=== PATIENT | male | born 1940 | race Caucasian/White ===

== ENCOUNTER 2020-01-18 13:33 | Emergency (ER) | payer MEDICARE, BC ==
[~2020-01-18] VITALS: Ht 188 cm; Wt 83.9 kg
[2020-01-18] MEDS ORDERED: SODIUM CHLORIDE 0.9% 500ML 500 ML IV STA (14:13)
[2020-01-18] MEDS ORDERED: SODIUM CHLORIDE FLUSH 10 ML SYR INJ PRN (14:15)
--- NOTE | 2020-01-18 14:42 | Diagnostic Imaging Report ---
EXAMINATION: CXR 1 VEW - HOPD INDICATION: Decreased appetite. Diarrhea. Fatigue ^fatigue COMPARISON: None FINDINGS: TUBES and LINES: Sternal wires. LUNGS: Lungs are well inflated. Mild chronic appearing change in the lungs. No focal lung consolidation. PLEURA: No pleural effusion or pneumothorax. HEART AND MEDIASTINUM: The cardiomediastinal silhouette is unremarkable. BONES AND SOFT TISSUES: No acute osseous lesion. Soft tissues are unremarkable. UPPER ABDOMEN: No free air under the diaphragm. IMPRESSION: Mild chronic appearing change in the lungs. No focal lung consolidation. Signed by: Dr. Sidney Calabrese M.D. on 01/18/2020 2:39 PM
--- OUTSIDE RECORDS SUMMARY | 2020-01-18 14:58 | XMS REPORT | Continuity of Care Document ---
Author Author [facility] t Organization [facility] Address [address] [place] [address] Phone Unavailable Care Team Providers Care Convex Grinder Name Role Phone Fernando WELCH, Jesse PCP Eva MCCOY Attphys Unavailable Payers Payer Name Policy Type Policy Number Effective Date Expiration Date S ource Problems This patient has no known problems. Allergies, Adverse Reactions, Alerts Allergy Name Allergy Type Status Severity Reaction(s) Onset Date Inacti ve Date Treating Clinician Comments Source No Known Allergies DA Active U 2020-01-16 00:00:00 [facility] No Known Allergies DA Active U 2019-12-26 00:00:00 [facility] No Known Allergies DA Active U 2019-12-10 00:00:00 [facility] No Known Allergies DA Active U 2017-08-13 00:00:00 [facility] Social History Social Habit Start Date Stop Date Quantity Comments Source Sex Assigned At Madhav Harding Medications This patient has no known medications. Procedures This patient has no known procedures. Plan of Care Planned Activity Planned Date Details Comments Source Future Scheduled Test 2020-02-15 00:00:00 INFLUENZA VACCINE [code = INFLUENZA VACCINE] [facility] Future Scheduled Test 2004 00:00:00 65+ PNEUMOCOCCAL V ACCINE (1 of 2 - PCV13) [code = 65+ PNEUMOCOCCAL VACCINE (1 of 2 - PCV13)] [facility] Future Scheduled Test 1989 00:00:00 SHINGLES VACCINES (#1) [code = SHINGLES VACCINES (#1)] [facility] Results Test Description Test Time Test Comments Results Result Comments Source [facility] 2020-01-18 14:38:00 [facility] [address] [place] [address] Patient Name: EILEEN CHACON MR #: [id number] : 1940 Age/Sex: 79/M Req #: [id number] Adm Physician: Ordered by: OG MCCOY Report #: [id number] Location: [facility] Room/Bed: Procedure: [id number] [facility] Exam Date: 01/18/20 Exam Time: 1437 REPORT STATUS: Signed EXAMINATION: CXR 1 [facility] INDICATION: Decreased appetite. Diarrhea. Fatigue fatigue COMPARISON: None FINDINGS: TUBES and LINES: Sternal wires. LUNGS: Lungs are well inflated. Mild chronic appearing change in the lungs. No focal lung consolidation. PLEURA: No pleural effusion or pneumothorax. HEART AND MEDIASTINUM: The cardiomediastinal silhouette is unremarkable. BONES AND SOFT TISSUES: No acute osseous lesion. Soft tissues are unremarkable. UPPER ABDOMEN: No free air under the diaphragm. IMPRESSION: Mild chronic appearing change in the lungs. No focal lung consolidation. Signed by: Dr. Guanaco Calabrese M.D. on 01/18/2020 2:39 PM Dictated By: GUANACO CALABRESE MD, MD 38 Transcribed By: RAMIRO on 01/18/201438 COPY TO: OG MCCOY BASIC METABOLIC PANEL 2020-01-16 15:10:00 Test Item SODIUM (test code = NA) 135 mEq/L 134-147 N POTASSIUM (test code = K) 4.3 mEq/L 3.4-5.0 N CHLORIDE (test code = CL) 104 mEq/L 100-108 N CARBON DIOXIDE (test code = CO2) 24 mEq/L 21-33 N ANION GAP (test code = GAP) 12 0-20 N GLUCOSE (test code = GLU) 110 mg/dL 70-110 N BLOOD UREA NITROGEN (test code = BUN) 34 mg/dL 7-18 H GLOMERULAR FILTRATION RATE (test code = GFR) 45.0 70-80 L Units of measure = ml/min/1.73 m2 CREATININE (test code = CREAT) 1.5 mg/dL 0.6-1.3 H CALCIUM (test code = CA) 10.1 mg/dL 8.0-10.5 N - XR CHEST 2 [id number] 14:38:00 FAX: Sarah Mariscal MD [phone] [place]: St: PRE FAX: Jesse Albright MD [phone] Name: EILEEN CHACON [facility] : 1940 Age/S: 79/M [address] [place] [address] Blvd Unit #: [id number] Loc: [place] [address] Phys: Sarah Gillespie MD Acct: [id number] Dis Date: Status: PRE [facility] PHONE #: [phone] Exam Date: 01/16/2020 1417 FAX #: [phone] Reason: PREOP EXAMS: CPT CODE: [id number] XR CHEST 2 V 58268 CLINICAL HISTORY: PREOP COMPARISON: December 26, 2019 PA and lateral termination of chest is available in 3 images. Sternotomy sutures are present. Heart size is normal. Lung boogie are clear. There is no evidence of pneumonia or congestive failure. Regional skeletal structures demonstrate no acute abnormality. IMPRESSION: No evidence of pneumonia or congestive failure is seen. at 1438 Reported and signed by: Moise Purcell M.D. CC: Sarah Gillespie MD; Jesse King MD Technologist: RT Prabhu(R)(M) Trnscrd Date/Time/By: 01/16/2020 (8769) : By: Jay Orig Print D/T: S: 01/16/2020 (1823) PAGE 1 Signed Report PROTHROMBIN [id number] 14:28:00* Test Item Value Reference Range Interpretation Comments PROTHROMBIN TIME PATIENT (test code = PTP) 13.9 SECONDS 9.3-12.9 H INTERNATIONAL NORMAL RATIO (test code = INR) 1.3 0.8-1.2 H TARGET INR BY INDICATION Indication INR1. Prophylaxis of venous thrombosis 2.0 - 3.0 (orthopedic surgery), Prophylaxis of venous thrombosis (other than high-risk surgery), Treatment of Deep Vein Thrombosis/Pulmonary Embolism, Prevention of systemic embolism - Tissue heart valves, Acute Myocardial Infarction (to prevent systemic embolism), Valvular heart disease, Atrial Fibrillation, Bileaflet mechanical valve in aortic position.2. Mechanical prosthetic valves (high risk), 2.5 - 3.5 Presence of Lupus Anticoagulant or Antiphospholipid Antibodies, Prevention of systemic embolism - Acute Myocardial Infarction (to prevent recurrent infarct). CBC W/AUTO [id number] 14:22:00* Test Item Value Reference Range Interpretation Comments WHITE BLOOD CELL (test code = WBC) 6.93 x10 3/uL 4.5-11.0 N RED BLOOD CELL (test code = RBC) 4.11 x10 6/uL 4.00-5.60 N HEMOGLOBIN (test code = HGB) 12.4 g/dL 12.5-16.9 L HEMATOCRIT (test code = HCT) 39.0 % 37.5-50.7 N MEAN CELL VOLUME (test code = MCV) 94.9 fL 81.0-99.0 N MEAN CELL HGB (test code = MCH) 30.2 pg 27.0-33.0 N MEAN CELL HGB CONCETRATION (test code = MCHC) 31.8 g/dL 33.0-37. 0 L RED CELL DISTRIBUTION WIDTH CV (test code = RDW) 14.9 % 11.5- 14.5 H RED CELL DISTRIBUTION WIDTH SD (test code = RDW-SD) 52.2 fL 37 .0-54.0 N PLATELET COUNT (test code = PLT) 295 x10 3/uL 150-400 N MEAN PLATELET VOLUME (test code = MPV) 9.1 fL 7.0-9.0 H NEUTROPHIL % (test code = NT%) 71.6 % 56.0-77.0 N IMMATURE GRANULOCYTE % (test code = IG%) 0.4 % 0.0-2.0 N LYMPHOCYTE % (test code = LY%) 20.2 % 14.0-32.0 N MONOCYTE % (test code = MO%) 6.6 % 4.8-9.0 N EOSINOPHIL % (test code = EO%) 0.9 % 0.3-3.7 N BASOPHIL % (test code = BA%) 0.3 % 0.0-2.0 N NUCLEATED RBC % (test code = NRBC%) 0.0 % 0-0 N NEUTROPHIL # (test code = NT#) 4.96 x10 3/uL 2.0-7.6 N IMMATURE GRANULOCYTE # (test code = IG#) 0.03 x10 3/uL 0.00-0.03 N LYMPHOCYTE # (test code = LY#) 1.40 x10 3/uL 1.0-3.8 N MONOCYTE # (test code = MO#) 0.46 x10 3/uL 0.1-0.8 N EOSINOPHIL # (test code = EO#) 0.06 x10 3/uL 0.0-0.2 N BASOPHIL # (test code = BA#) 0.02 x10 3/uL 0.0-0.2 N NUCLEATED RBC # (test code = NRBC#) 0.00 x10 3/uL 0.0-0.1 N MANUAL DIFF REQUIRED (test code = MDIFF) NO BASIC METABOLIC [id number] 16:33:00* Test Item Value Reference Range Interpretation Comments SODIUM (test code = NA) 137 mEq/L 134-147 N POTASSIUM (test code = K) 4.1 mEq/L 3.4-5.0 N CHLORIDE (test code = CL) 100 mEq/L 100-108 N CARBON DIOXIDE (test code = CO2) 25 mEq/L 21-33 N ANION GAP (test code = GAP) 17 0-20 N GLUCOSE (test code = GLU) 128 mg/dL 70-110 H BLOOD UREA NITROGEN (test code = BUN) 30 mg/dL 7-18 H GLOMERULAR FILTRATION RATE (test code = GFR) 45.0 70-80 L Units of measure = ml/min/1.73 m2 CREATININE (test code = CREAT) 1.5 mg/dL 0.6-1.3 H CALCIUM (test code = CA) 9.6 mg/dL 8.0-10.5 N B-TYPE NATRIURETIC [id number] 15:55:00* Test Item Value Reference Range Interpretation Comments B-TYPE NATRIURETIC PEPTIDE (test code = BNP) 653.0 PG/ML 0-100 H CBC W/AUTO [id number] 12:30:00* Test Item Value Reference Range Interpretation Comments WHITE BLOOD CELL (test code = WBC) 10.48 x10 3/uL 4.5-11.0 N RED BLOOD CELL (test code = RBC) 4.55 x10 6/uL 4.00-5.60 N HEMOGLOBIN (test code = HGB) 14.0 g/dL 12.5-16.9 N HEMATOCRIT (test code = HCT) 42.8 % 37.5-50.7 N MEAN CELL VOLUME (test code = MCV) 94.1 fL 81.0-99.0 N MEAN CELL HGB (test code = MCH) 30.8 pg 27.0-33.0 N MEAN CELL HGB CONCETRATION (test code = MCHC) 32.7 g/dL 33.0-37. 0 L RED CELL DISTRIBUTION WIDTH CV (test code = RDW) 14.5 % 11.5- 14.5 N RED CELL DISTRIBUTION WIDTH SD (test code = RDW-SD) 50.6 fL 37 .0-54.0 N PLATELET COUNT (test code = PLT) 258 x10 3/uL 150-400 N MEAN PLATELET VOLUME (test code = MPV) 9.7 fL 7.0-9.0 H NEUTROPHIL % (test code = NT%) 74.0 % 56.0-77.0 N IMMATURE GRANULOCYTE % (test code = IG%) 0.4 % 0.0-2.0 N LYMPHOCYTE % (test code = LY%) 17.8 % 14.0-32.0 N MONOCYTE % (test code = MO%) 6.7 % 4.8-9.0 N EOSINOPHIL % (test code = EO%) 0.7 % 0.3-3.7 N BASOPHIL % (test code = BA%) 0.4 % 0.0-2.0 N NUCLEATED RBC % (test code = NRBC%) 0.0 % 0-0 N NEUTROPHIL # (test code = NT#) 7.76 x10 3/uL 2.0-7.6 H IMMATURE GRANULOCYTE # (test code = IG#) 0.04 x10 3/uL 0.00-0.03 H LYMPHOCYTE # (test code = LY#) 1.87 x10 3/uL 1.0-3.8 N MONOCYTE # (test code = MO#) 0.70 x10 3/uL 0.1-0.8 N EOSINOPHIL # (test code = EO#) 0.07 x10 3/uL 0.0-0.2 N BASOPHIL # (test code = BA#) 0.04 x10 3/uL 0.0-0.2 N NUCLEATED RBC # (test code = NRBC#) 0.00 x10 3/uL 0.0-0.1 N MANUAL DIFF REQUIRED (test code = MDIFF) NO [id number] 06:38:00* Test Item Value Reference Range Interpretation Comments TROPONIN-I (test code = TROPI) 0.012 ng/mL 0.000-0.045 N Negative: <= 0.045 Positive: >= 0.046 Correlation with serial results, other cardiac markers andclinical findings is necessary to determine the clinicalsignificance of this result. Results using different methodologies should not be comparedto one another as quantitative results may vary by method. [id number] 03:10:00* Test Item Value Reference Range Interpretation Comments TROPONIN-I (test code = TROPI) 0.012 ng/mL 0.000-0.045 N Negative: <= 0.045 Positive: >= 0.046 Correlation with serial results, other cardiac markers andclinical findings is necessary to determine the clinicalsignificance of this result. Results using different methodologies should not be comparedto one another as quantitative results may vary by method. - DUP VEIN UNI/[id number] 01:01:00 Name: EILEEN CHACON [facility] [place] : 1940 Age/S: 79 / M [address] [place] [address] Unit #: [id number] Loc: [place] [address] Phys: Philippe Gonzalez DO Acct: [id number] Dis Date: Status: REG ER PHONE #: [phone] Exam Date: 12/27/201928 FAX #: [phone] Reason: RLE swelling EXAMS: CPT CODE: [id number] DUP VEIN UNI/LTD 12458 EXAM: US, DUP VEIN UNI/LTD: 12/27/2019, 0003 hours Clinical Indication: Right lower extremity swelling. Status post cardiac scans on 12/12/2019. Evaluate for DVT. Shortness of breath. Comparison: None. TECHNIQUE: Sonographic evaluation of the right lower extremity veins was performed using high resolution B-mode imaging, along with pulse and color Doppler imaging. FINDINGS: Right lower extremity: The common femoral vein, superficial femoral vein, popliteal vein and visualized posterior tibial/calf veins are patent. There is no echogenic debris to suggest deep venous thrombosis. The saphenofemoral junction is unremarkable. IMPRESSION: 1. No deep venous thrombosis of right lower extremity. REFERENCE: Deep veins include: common femoral vein, superficial femoral vein (also can be referred to as "femoral vein"), popliteal vein, posterior tibial vein Superficial veins include: greater and lesser saphenous veins SL: JSYED-H Electronica lly Signed by Bulmaro Klein on 12/27/2019 at 0101 Repo rted and signed by: Ritchie Klein M.D. PAGE 1 Sign ed Report (CONTINUED) Name: EILEEN CHACON : 1940 Age/S: 79 / M [address] [place] [address] Unit #: [id number] Loc: [place] [address] Phys: GonzalezPhilippe DO Acct: [id number] Dis Date: Status: REG ER PHONE #: [phone] Exam Date: 12/27/2019 0029 FAX #: [phone] Reason: RLE swelling EXAMS: CPT CODE: [id number] DUP VEIN UNI/LTD 23565 <Continued> CC: Philippe Gonzalez DO Technologist: Laura Saucedo RDMS(AB)(OB) Trnscb Date/Time: 12/27/2019 (100) [id number] Orig Print D/T: S: 12/27/2019 (010) Probe: PAGE 2 Signed Report - CT CHEST W/O [id number] 00:47:00 Name: EILEEN CHACON [facility] : 1940 Age/S: 79 / M [address] [place], [place] [address]vd Unit #: [id number] Loc: [place] [address] Phys: Philippe Gonzalez Acct: [id number] Dis Date: Status: REG ER PHONE #: [phone] Exam Date: 12/27/2019 002 FAX #: [phone] Reason: lung opacity EXAMS: CPT CODE: [id number] CT CHEST W/O CONTRAST 37010 CT CHEST WITHOUT CONTRAST DATED 12/27/2019. INDICATION: Elevated blood pressure. Shortness of breath. Left lung opacity on chest x-ray. COMPARISON: Chest radiograph dated 12/26/2019. TECHNIQUE: A CT of the chest was performed using helical imaging from the thoracic inlet through the thoracic outlet during with subsequent sagittal and coronal reconstruction. . IV Contrast: None. CT imaging performed at this location utilizes radiation dose optimization techniques which include one or more of the followin) Automated exposure control; 2) Adjustment of mA and/or kV; 3) Use of iterative reconstructive technique. CT radiation dose DLP (mGy-cm): 413. FINDINGS: MEDIASTINUM: The CT images of the mediastinum demonstrate no evidence of a mediastinal mass or enlarged mediastinal lymph nodes. A small hiatal hernia is noted in the lower mediastinum. The thoracic aorta is normal in caliber. Assessment for aortic dissection is limited by the absence of intravenous contrast. Atherosclerotic calcification is identified in the aorta, proximal great vessels and coronary arteries. 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 PLE URAL SPACE: No acute pleural space abnormalities are detected. MAGALY NGS: The lungs appear clear of acute disease. No pulmonary masses are not ed. Scarring is identified in the left upper lobe with pleural tenting. UPPER ABDOMEN: The included upper abdominal organs appear unr emarkable. ADDITIONAL FINDINGS: Old healed fractures of the compounder flavorings olateral left 7th, 8th and 9th ribs IMPRESSION: [address] abnormalities of the lungs, mediastinum or pleural spaces are detected. PAGE 1 Signed Report (CONTINUED) Name: EILEEN CHACON [facility] : 1940 Age/S: 79 / M [address] [place] [address] Unit #: [id number] Loc: [place] [address] [facility] s: Philippe Gonzalez DO Acct: [id number] Dis Date: Status: REG ER PHONE #: [phone] Exam Date: 12/27/201926 FAX #: [phone] Reason: lung opacity EXAMS: CPT CODE: [id number] CT CHEST W/O CONTRAST 68170 <Continued> SL: 131 at 0047 Reported and signed by: David Thomas M.D. CC: Philippe Gonzalez DO Technologist:RT Kofi(R) CTDI: DLP: Trnscb Date/Time: 12/27/2019 (0047) Mook Orig Print D/T: S: 12/27/2019 (005) PAGE 2 Signed Report - XR CHEST 1 [id number] 22:45:00 FAX: Philippe Gonzalez DO [phone] [place]: St: REG Name: Britton BOSTONMATTYN FRED [facility] : [birth year] Age/S: 79/M [address] [place] [address] Blvd Unit #: [id number] Loc: G.ERS2 [place] [address] Phys: Philippe Gonzalez DO Acct: [id number] Dis Date: Status: REG ER PHONE #: [phone] Exam Date: 12/26/20192232 FAX #: [phone] Reason: malaise EXAMS: CPT CODE: [id number] XR CHEST 1 V 87611 Chest, single view dated 12/26/2019. HISTORY: Malaise. Elevated blood pressure. Shortness of breath. Comparison is made to a prior study dated 12/10/2019. The patient is status post median sternotomy. The heart is normal in s ize. The cardiomediastinal shadow is stable. A vague region of increased opacity is identified in the periphery of the left midlung. Linear paren chymal scarring is identified in the left upper lobe. The right lung appe ars clear. The pulmonary vasculature is normal in caliber. No acute pleu ral space abnormalities are detected. 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 IMPRESSION: 1. The vague ar ea of increased opacity in the periphery of the left midlung may be pleu ral in origin and related to the old left rib fractures. Since this opa city is not clearly demonstrated on the preceding study, it would be dif ficult to exclude early infiltrate. There is no additional radiographic evidence of acute cardiopulmonary disease. SL: 131 at 2245 Reported and signed by: David Thomas M.D. CC: Philippe Gonzalez DO Technologist: RT Jazmyne(Jamil) Trnscrd Date/Time/By: 12/26/2019 (2) : By: Mook Gonzalez Print D/T: S: 12/26/2019 (8861) PAGE 1 Signed Report B-TYPE NATRIURETIC [id number] 22:22:00* Test Item Value Reference Range Interpretation Comments B-TYPE NATRIURETIC PEPTIDE (test code = BNP) 1223.0 PG/ML 0-100 H BASIC METABOLIC [id number] 22:19:00* Test Item Value Reference Range Interpretation Comments SODIUM (test code = NA) 138 mEq/L 134-147 N POTASSIUM (test code = K) 4.0 mEq/L 3.4-5.0 N CHLORIDE (test code = CL) 102 mEq/L 100-108 N CARBON DIOXIDE (test code = CO2) 24 mEq/L 21-33 N ANION GAP (test code = GAP) 16 0-20 N GLUCOSE (test code = GLU) 147 mg/dL 70-110 H BLOOD UREA NITROGEN (test code = BUN) 30 mg/dL 7-18 H GLOMERULAR FILTRATION RATE (test code = GFR) 48.8 70-80 L Units of measure = ml/min/1.73 m2 CREATININE (test code = CREAT) 1.4 mg/dL 0.6-1.3 H CALCIUM (test code = CA) 9.9 mg/dL 8.0-10.5 N HEPATIC FUNCTION [id number] 22:19:00* Test Item Value Reference Range Interpretation Comments TOTAL PROTEIN (test code = PROT) 7.0 g/dL 6.4-8.2 N ALBUMIN (test code = ALB) 4.30 g/dL 3.4-5.0 N BILIRUBIN TOTAL (test code = BILT) 0.60 mg/dL 0.0-1.0 N BILIRUBIN DIRECT (test code = BILD) 0.20 MG/DL 0.0-0.30 BILIRUBIN INDIRECT (test code = BILIND) 0.40 MG/DL SGOT/AST (test code = AST) 12 IUnit/L 15-37 L SGPT/ALT (test code = ALT) 10 IUnit/L 30-65 L ALKALINE PHOSPHATASE TOTAL (test code = ALKP) 53 IUnit/L 20-125 N [id number] 22:19:00* Test Item Value Reference Range Interpretation Comments MAGNESIUM (test code = MAG) 2.11 mg/dL 1.8-2.4 N [id number] 22:19:00* Test Item Value Reference Range Interpretation Comments TROPONIN-I (test code = TROPI) 0.011 ng/mL 0.000-0.045 N Negative: <= 0.045 Positive: >= 0.046 Correlation with serial results, other cardiac markers andclinical findings is necessary to determine the clinicalsignificance of this result. Results using different methodologies should not be comparedto one another as quantitative results may vary by method. THROMBOPLASTIN TIME [id number] 22:15:00* Test Item Value Reference Range Interpretation Comments THROMBOPLASTIN TIME PARTIAL (test code = PTT) 54.2 Seconds 25.0-39. 5 H Therapeutic Range: 50.4 - 88.3 Seconds Effective 08/30/2018 CBC W/AUTO [id number] 22:04:00* Test Item Value Reference Range Interpretation Comments WHITE BLOOD CELL (test code = WBC) 11.40 x10 3/uL 4.5-11.0 H RED BLOOD CELL (test code = RBC) 4.19 x10 6/uL 4.00-5.60 N HEMOGLOBIN (test code = HGB) 13.0 g/dL 12.5-16.9 N HEMATOCRIT (test code = HCT) 39.6 % 37.5-50.7 N MEAN CELL VOLUME (test code = MCV) 94.5 fL 81.0-99.0 N MEAN CELL HGB (test code = MCH) 31.0 pg 27.0-33.0 N MEAN CELL HGB CONCETRATION (test code = MCHC) 32.8 g/dL 33.0-37. 0 L RED CELL DISTRIBUTION WIDTH CV (test code = RDW) 14.4 % 11.5- 14.5 N RED CELL DISTRIBUTION WIDTH SD (test code = RDW-SD) 50.1 fL 37 .0-54.0 N PLATELET COUNT (test code = PLT) 247 x10 3/uL 150-400 N MEAN PLATELET VOLUME (test code = MPV) 10.0 fL 7.0-9.0 H NEUTROPHIL % (test code = NT%) 76.7 % 56.0-77.0 N IMMATURE GRANULOCYTE % (test code = IG%) 0.4 % 0.0-2.0 N LYMPHOCYTE % (test code = LY%) 15.6 % 14.0-32.0 N MONOCYTE % (test code = MO%) 6.6 % 4.8-9.0 N EOSINOPHIL % (test code = EO%) 0.4 % 0.3-3.7 N BASOPHIL % (test code = BA%) 0.3 % 0.0-2.0 N NUCLEATED RBC % (test code = NRBC%) 0.0 % 0-0 N NEUTROPHIL # (test code = NT#) 8.74 x10 3/uL 2.0-7.6 H IMMATURE GRANULOCYTE # (test code = IG#) 0.05 x10 3/uL 0.00-0.03 H LYMPHOCYTE # (test code = LY#) 1.78 x10 3/uL 1.0-3.8 N MONOCYTE # (test code = MO#) 0.75 x10 3/uL 0.1-0.8 N EOSINOPHIL # (test code = EO#) 0.05 x10 3/uL 0.0-0.2 N BASOPHIL # (test code = BA#) 0.03 x10 3/uL 0.0-0.2 N NUCLEATED RBC # (test code = NRBC#) 0.00 x10 3/uL 0.0-0.1 N MANUAL DIFF REQUIRED (test code = MDIFF) NO BASIC METABOLIC [id number] 04:48:00* Test Item Value Reference Range Interpretation Comments SODIUM (test code = NA) 138 mEq/L 134-147 N POTASSIUM (test code = K) 4.0 mEq/L 3.4-5.0 N CHLORIDE (test code = CL) 109 mEq/L 100-108 H CARBON DIOXIDE (test code = CO2) 21 mEq/L 21-33 N ANION GAP (test code = GAP) 12 0-20 N GLUCOSE (test code = GLU) 122 mg/dL 70-110 H BLOOD UREA NITROGEN (test code = BUN) 27 mg/dL 7-18 H GLOMERULAR FILTRATION RATE (test code = GFR) 64.4 70-80 L Units of measure = ml/min/1.73 m2 CREATININE (test code = CREAT) 1.1 mg/dL 0.6-1.3 N CALCIUM (test code = CA) 9.1 mg/dL 8.0-10.5 N CBC W/AUTO [id number] 04:17:00* Test Item Value Reference Range Interpretation Comments WHITE BLOOD CELL (test code = WBC) 8.24 x10 3/uL 4.5-11.0 N RED BLOOD CELL (test code = RBC) 4.17 x10 6/uL 4.00-5.60 N HEMOGLOBIN (test code = HGB) 12.8 g/dL 12.5-16.9 N HEMATOCRIT (test code = HCT) 41.2 % 37.5-50.7 N MEAN CELL VOLUME (test code = MCV) 98.8 fL 81.0-99.0 N MEAN CELL HGB (test code = MCH) 30.7 pg 27.0-33.0 N MEAN CELL HGB CONCETRATION (test code = MCHC) 31.1 g/dL 33.0-37. 0 L RED CELL DISTRIBUTION WIDTH CV (test code = RDW) 14.6 % 11.5- 14.5 H RED CELL DISTRIBUTION WIDTH SD (test code = RDW-SD) 53.1 fL 37 .0-54.0 N PLATELET COUNT (test code = PLT) 193 x10 3/uL 150-400 N MEAN PLATELET VOLUME (test code = MPV) 9.9 fL 7.0-9.0 H NEUTROPHIL % (test code = NT%) 67.0 % 56.0-77.0 N IMMATURE GRANULOCYTE % (test code = IG%) 0.6 % 0.0-2.0 N LYMPHOCYTE % (test code = LY%) 22.5 % 14.0-32.0 N MONOCYTE % (test code = MO%) 7.2 % 4.8-9.0 N EOSINOPHIL % (test code = EO%) 2.2 % 0.3-3.7 N BASOPHIL % (test code = BA%) 0.5 % 0.0-2.0 N NUCLEATED RBC % (test code = NRBC%) 0.0 % 0-0 N NEUTROPHIL # (test code = NT#) 5.53 x10 3/uL 2.0-7.6 N IMMATURE GRANULOCYTE # (test code = IG#) 0.05 x10 3/uL 0.00-0.03 H LYMPHOCYTE # (test code = LY#) 1.85 x10 3/uL 1.0-3.8 N MONOCYTE # (test code = MO#) 0.59 x10 3/uL 0.1-0.8 N EOSINOPHIL # (test code = EO#) 0.18 x10 3/uL 0.0-0.2 N BASOPHIL # (test code = BA#) 0.04 x10 3/uL 0.0-0.2 N NUCLEATED RBC # (test code = NRBC#) 0.00 x10 3/uL 0.0-0.1 N MANUAL DIFF REQUIRED (test code = MDIFF) NO BASIC METABOLIC [id number] 16:09:00* Test Item Value Reference Range Interpretation Comments SODIUM (test code = NA) 136 mEq/L 134-147 N POTASSIUM (test code = K) 4.0 mEq/L 3.4-5.0 N CHLORIDE (test code = CL) 108 mEq/L 100-108 N CARBON DIOXIDE (test code = CO2) 22 mEq/L 21-33 N ANION GAP (test code = GAP) 10 0-20 N GLUCOSE (test code = GLU) 126 mg/dL 70-110 H BLOOD UREA NITROGEN (test code = BUN) 27 mg/dL 7-18 H GLOMERULAR FILTRATION RATE (test code = GFR) 53.1 70-80 L Units of measure = ml/min/1.73 m2 CREATININE (test code = CREAT) 1.3 mg/dL 0.6-1.3 N CALCIUM (test code = CA) 9.0 mg/dL 8.0-10.5 N [id number] 16:09:00* Test Item Value Reference Range Interpretation Comments MAGNESIUM (test code = MAG) 2.50 mg/dL 1.8-2.4 H BASIC METABOLIC [id number] 16:08:00* Test Item Value Reference Range Interpretation Comments SODIUM (test code = NA) 136 mEq/L 134-147 N POTASSIUM (test code = K) 4.0 mEq/L 3.4-5.0 N CHLORIDE (test code = CL) 108 mEq/L 100-108 N CARBON DIOXIDE (test code = CO2) 22 mEq/L 21-33 N ANION GAP (test code = GAP) 10 0-20 N GLUCOSE (test code = GLU) 126 mg/dL 70-110 H BLOOD UREA NITROGEN (test code = BUN) 27 mg/dL 7-18 H GLOMERULAR FILTRATION RATE (test code = GFR) 70-80 CREATININE (test code = CREAT) mg/dL 0.6-1.3 CALCIUM (test code = CA) 9.0 mg/dL 8.0-10.5 N [id number] 16:08:00* Test Item Value Reference Range Interpretation Comments MAGNESIUM (test code = MAG) 2.50 mg/dL 1.8-2.4 H [id number] 12:17:00* Test Item Value Reference Range Interpretation Comments ACT-ISTAT (test code = ACTI) 296 SEC 74-137 H Performed by certified enrobing machine operator at [facility] [id number] 12:17:00* Test Item Value Reference Range Interpretation Comments ACT-ISTAT (test code = ACTI) 758 SEC 74-137 H Performed by certified enrobing machine operator at [facility] B-TYPE NATRIURETIC [id number] 07:35:00* Test Item Value Reference Range Interpretation Comments B-TYPE NATRIURETIC PEPTIDE (test code = BNP) 329.2 PG/ML 0-100 H BASIC METABOLIC [id number] 07:01:00* Test Item Value Reference Range Interpretation Comments SODIUM (test code = NA) 137 mEq/L 134-147 N POTASSIUM (test code = K) 3.8 mEq/L 3.4-5.0 N CHLORIDE (test code = CL) 107 mEq/L 100-108 N CARBON DIOXIDE (test code = CO2) 22 mEq/L 21-33 N ANION GAP (test code = GAP) 12 0-20 N GLUCOSE (test code = GLU) 121 mg/dL 70-110 H BLOOD UREA NITROGEN (test code = BUN) 31 mg/dL 7-18 H GLOMERULAR FILTRATION RATE (test code = GFR) 45.0 70-80 L Units of measure = ml/min/1.73 m2 CREATININE (test code = CREAT) 1.5 mg/dL 0.6-1.3 H CALCIUM (test code = CA) 9.1 mg/dL 8.0-10.5 N COMMENTS: To be done morning of Heart CathCBC W/AUTO [id number] 06:35:00* Test Item Value Reference Range Interpretation Comments WHITE BLOOD CELL (test code = WBC) 7.74 x10 3/uL 4.5-11.0 N RED BLOOD CELL (test code = RBC) 4.44 x10 6/uL 4.00-5.60 N HEMOGLOBIN (test code = HGB) 13.6 g/dL 12.5-16.9 N HEMATOCRIT (test code = HCT) 42.7 % 37.5-50.7 N MEAN CELL VOLUME (test code = MCV) 96.2 fL 81.0-99.0 MEAN CELL HGB (test code = MCH) 30.6 pg 27.0-33.0 N MEAN CELL HGB CONCETRATION (test code = MCHC) 31.9 g/dL 33.0-37. 0 L RED CELL DISTRIBUTION WIDTH CV (test code = RDW) 14.6 % 11.5- 14.5 H RED CELL DISTRIBUTION WIDTH SD (test code = RDW-SD) 51.6 fL 37 .0-54.0 N PLATELET COUNT (test code = PLT) 196 x10 3/uL 150-400 N MEAN PLATELET VOLUME (test code = MPV) 9.9 fL 7.0-9.0 H NEUTROPHIL % (test code = NT%) 63.2 % 56.0-77.0 N IMMATURE GRANULOCYTE % (test code = IG%) 0.6 % 0.0-2.0 N LYMPHOCYTE % (test code = LY%) 25.3 % 14.0-32.0 N MONOCYTE % (test code = MO%) 8.7 % 4.8-9.0 N EOSINOPHIL % (test code = EO%) 1.7 % 0.3-3.7 N BASOPHIL % (test code = BA%) 0.5 % 0.0-2.0 N NUCLEATED RBC % (test code = NRBC%) 0.0 % 0-0 N NEUTROPHIL # (test code = NT#) 4.89 x10 3/uL 2.0-7.6 N IMMATURE GRANULOCYTE # (test code = IG#) 0.05 x10 3/uL 0.00-0.03 H LYMPHOCYTE # (test code = LY#) 1.96 x10 3/uL 1.0-3.8 N MONOCYTE # (test code = MO#) 0.67 x10 3/uL 0.1-0.8 N EOSINOPHIL # (test code = EO#) 0.13 x10 3/uL 0.0-0.2 N BASOPHIL # (test code = BA#) 0.04 x10 3/uL 0.0-0.2 N NUCLEATED RBC # (test code = NRBC#) 0.00 x10 3/uL 0.0-0.1 N MANUAL DIFF REQUIRED (test code = MDIFF) NO COMMENTS: To be done morning of Heart CathCOVID 19 Asymptomatic IH [id number] 19:03:00* Test Item Value Reference Range Interpretation Comments COVID 19 Asymptomatic IH AG (test code = COVNONPUIAG) Negative Negative A negative result is presumptive and should be confirmedwith an FDA authorized molecular assay, if necessary forpatient management.A positive result does not rule out co-infections withother pathogens.This test detects both viable (live) and non-viable,SARS-CoV, and SARS-CoV-2. Test performance depends on theamount of virus (antigen) in the sample.This test has not been FDA cleared or approved; the test hasbeen authorized by FDA under an Emergency Use Authorization(EUA) for use by laboratories certified under the CLIA thatmeet the requirements to perform moderate, high or waivedcomplexity tests. LIPID PROFILE (CORONARY RISK)2019-12-11 13:23:00* Test Item Value Reference Range Interpretation Comments TRIGLYCERIDES (test code = TRIG) 233 mg/dL 40-150 H CHOLESTEROL (test code = CHOL) 138 mg/dL <200 CHOLESTEROL/HDL RATIO (test code = CHOLHDL) 4.60 RATIO 3.43-4.97 N RISK ASSOCIATED WITH CHOL/HDL RATIOS: RISK MALE FEMALE1/2 AVERAGE 3.43 3.27AVERAGE 4.97 4.442X AVERAGE 9.55 7.053X AVERAGE 23.39 11.04 NOTE THAT THE REFERENCE VALUE IS RELATEDTO RISK LEVELS RECOMMENDED BY THE NATL.HEART, LUNG, AND BLOOD INST. HDL CHOLESTEROL (test code = HDL) 30.0 mg/dL 32-72 L LIPOPROTEIN LDL (test code = LDL) 79 mg/dL 0-100 N <100 [id number] NEAR OPTIMAL/ABOVE [id number] HIGH>TT=745 VERY HIGH*Guidelines provided by the National Cholesterol EducationProgram Adult Treatment Panel III [id number] 13:23:00* Test Item Value Reference Range Interpretation Comments TROPONIN-I (test code = TROPI) < 0.015 ng/mL 0.000-0.045 N Negative: <= 0.045 Positive: >= 0.046 Correlation with serial results, other cardiac markers andclinical findings is necessary to determine the clinicalsignificance of this result. Results using different methodologies should not be comparedto one another as quantitative results may vary by method. LIPID PROFILE (CORONARY RISK)2019-12-11 13:19:00* Test Item Value Reference Range Interpretation Comments TRIGLYCERIDES (test code = TRIG) mg/dL 40-150 CHOLESTEROL (test code = CHOL) mg/dL <200 CHOLESTEROL/HDL RATIO (test code = CHOLHDL) RATIO 3.43-4.97 HDL CHOLESTEROL (test code = HDL) mg/dL 32-72 LIPOPROTEIN LDL (test code = LDL) mg/dL 0-100 [id number] 13:19:00* Test Item Value Reference Range Interpretation Comments TROPONIN-I (test code = TROPI) < 0.015 ng/mL 0.000-0.045 N Negative: <= 0.045 Positive: >= 0.046 Correlation with serial results, other cardiac markers andclinical findings is necessary to determine the clinicalsignificance of this result. Results using different methodologies should not be comparedto one another as quantitative results may vary by method. HGBA1C%2019-12-11 13:17:00* Test Item Value Reference Range Interpretation Comments HGBA1C% (test code = HGBA1C%) 5.9 %A1C 4.8-6.0 N CBC W/AUTO [id number] 08:06:00* Test Item Value Reference Range Interpretation Comments WHITE BLOOD CELL (test code = WBC) 6.32 x10 3/uL 4.5-11.0 N RED BLOOD CELL (test code = RBC) 4.86 x10 6/uL 4.00-5.60 N HEMOGLOBIN (test code = HGB) 15.1 g/dL 12.5-16.9 N HEMATOCRIT (test code = HCT) 48.2 % 37.5-50.7 N MEAN CELL VOLUME (test code = MCV) 99.2 fL 81.0-99.0 H MEAN CELL HGB (test code = MCH) 31.1 pg 27.0-33.0 N MEAN CELL HGB CONCETRATION (test code = MCHC) 31.3 g/dL 33.0-37. 0 L RED CELL DISTRIBUTION WIDTH CV (test code = RDW) 14.7 % 11.5- 14.5 H RED CELL DISTRIBUTION WIDTH SD (test code = RDW-SD) 53.4 fL 37 .0-54.0 N PLATELET COUNT (test code = PLT) 212 x10 3/uL 150-400 N MEAN PLATELET VOLUME (test code = MPV) 10.1 fL 7.0-9.0 H NEUTROPHIL % (test code = NT%) 55.4 % 56.0-77.0 L IMMATURE GRANULOCYTE % (test code = IG%) 1.3 % 0.0-2.0 N LYMPHOCYTE % (test code = LY%) 33.4 % 14.0-32.0 H MONOCYTE % (test code = MO%) 7.9 % 4.8-9.0 N EOSINOPHIL % (test code = EO%) 1.4 % 0.3-3.7 N BASOPHIL % (test code = BA%) 0.6 % 0.0-2.0 N NUCLEATED RBC % (test code = NRBC%) 0.0 % 0-0 N NEUTROPHIL # (test code = NT#) 3.50 x10 3/uL 2.0-7.6 N IMMATURE GRANULOCYTE # (test code = IG#) 0.08 x10 3/uL 0.00-0.03 H LYMPHOCYTE # (test code = LY#) 2.11 x10 3/uL 1.0-3.8 N MONOCYTE # (test code = MO#) 0.50 x10 3/uL 0.1-0.8 N EOSINOPHIL # (test code = EO#) 0.09 x10 3/uL 0.0-0.2 N BASOPHIL # (test code = BA#) 0.04 x10 3/uL 0.0-0.2 N NUCLEATED RBC # (test code = NRBC#) 0.00 x10 3/uL 0.0-0.1 N MANUAL DIFF REQUIRED (test code = MDIFF) NO BASIC METABOLIC [id number] 07:37:00* Test Item Value Reference Range Interpretation Comments SODIUM (test code = NA) 135 mEq/L 134-147 N POTASSIUM (test code = K) 4.5 mEq/L 3.4-5.0 N CHLORIDE (test code = CL) 105 mEq/L 100-108 N CARBON DIOXIDE (test code = CO2) 20 mEq/L 21-33 L ANION GAP (test code = GAP) 15 0-20 N GLUCOSE (test code = GLU) 103 mg/dL 70-110 N BLOOD UREA NITROGEN (test code = BUN) 27 mg/dL 7-18 H GLOMERULAR FILTRATION RATE (test code = GFR) 48.8 70-80 L Units of measure = ml/min/1.73 m2 CREATININE (test code = CREAT) 1.4 mg/dL 0.6-1.3 H CALCIUM (test code = CA) 9.6 mg/dL 8.0-10.5 N [id number] 18:28:00* Test Item Value Reference Range Interpretation Comments TROPONIN-I (test code = TROPI) < 0.015 ng/mL 0.000-0.045 N Negative: <= 0.045 Positive: >= 0.046 Correlation with serial results, other cardiac markers andclinical findings is necessary to determine the clinicalsignificance of this result. Results using different methodologies should not be comparedto one another as quantitative results may vary by method. [id number] 16:24:00* Test Item Value Reference Range Interpretation Comments TROPONIN-I (test code = TROPI) < 0.015 ng/mL 0.000-0.045 N Negative: <= 0.045 Positive: >= 0.046 Correlation with serial results, other cardiac markers andclinical findings is necessary to determine the clinicalsignificance of this result. Results using different methodologies should not be comparedto one another as quantitative results may vary by method. B-TYPE NATRIURETIC [id number] 13:14:00* Test Item Value Reference Range Interpretation Comments B-TYPE NATRIURETIC PEPTIDE (test code = BNP) 385.3 PG/ML 0-100 H PROTHROMBIN [id number] 12:59:00* Test Item Value Reference Range Interpretation Comments PROTHROMBIN TIME PATIENT (test code = PTP) 12.5 SECONDS 9.3-12.9 N INTERNATIONAL NORMAL RATIO (test code = INR) 1.1 0.8-1.2 N TARGET INR BY INDICATION Indication INR1. Prophylaxis of venous thrombosis 2.0 - 3.0 (orthopedic surgery), Prophylaxis of venous thrombosis (other than high-risk surgery), Treatment of Deep Vein Thrombosis/Pulmonary Embolism, Prevention of systemic embolism - Tissue heart valves, Acute Myocardial Infarction (to prevent systemic embolism), Valvular heart disease, Atrial Fibrillation, Bileaflet mechanical valve in aortic position.2. Mechanical prosthetic valves (high risk), 2.5 - 3.5 Presence of Lupus Anticoagulant or Antiphospholipid Antibodies, Prevention of systemic embolism - Acute Myocardial Infarction (to prevent recurrent infarct). THROMBOPLASTIN TIME [id number] 12:59:00* Test Item Value Reference Range Interpretation Comments THROMBOPLASTIN TIME PARTIAL (test code = PTT) 49.8 Seconds 25.0-39. 5 H Therapeutic Range: 50.4 - 88.3 Seconds Effective 08/30/2018 BASIC METABOLIC [id number] 12:52:00* Test Item Value Reference Range Interpretation Comments SODIUM (test code = NA) 140 mEq/L 134-147 N POTASSIUM (test code = K) 4.7 mEq/L 3.4-5.0 N SP ECIMEN 1+ HEMOLYZED.Results known to be adversely affected by hemolysis are: Potassium Magnesium LDH Phosphorus CHLORIDE (test code = CL) 111 mEq/L 100-108 H CARBON DIOXIDE (test code = CO2) 22 mEq/L 21-33 N ANION GAP (test code = GAP) 12 0-20 N GLUCOSE (test code = GLU) 115 mg/dL 70-110 H BLOOD UREA NITROGEN (test code = BUN) 22 mg/dL 7-18 H GLOMERULAR FILTRATION RATE (test code = GFR) 53.1 70-80 L Units of measure = ml/min/1.73 m2 CREATININE (test code = CREAT) 1.3 mg/dL 0.6-1.3 N CALCIUM (test code = CA) 8.5 mg/dL 8.0-10.5 N HEPATIC FUNCTION [id number] 12:52:00* Test Item Value Reference Range Interpretation Comments TOTAL PROTEIN (test code = PROT) 6.2 g/dL 6.4-8.2 L ALBUMIN (test code = ALB) 3.50 g/dL 3.4-5.0 N BILIRUBIN TOTAL (test code = BILT) 0.6 MG/DL <1.5 N BILIRUBIN DIRECT (test code = BILD) < 0.10 MG/DL 0.0-0.30 N BILIRUBIN INDIRECT (test code = BILIND) 0.50 MG/DL SGOT/AST (test code = AST) 25 IUnit/L 15-37 N SGPT/ALT (test code = ALT) 19 IUnit/L 15-65 N ALKALINE PHOSPHATASE TOTAL (test code = ALKP) 47 IUnit/L 20-125 N [id number] 12:52:00* Test Item Value Reference Range Interpretation Comments MAGNESIUM (test code = MAG) 2.00 mg/dL 1.8-2.4 N [id number] 12:52:00* Test Item Value Reference Range Interpretation Comments TROPONIN-I (test code = TROPI) < 0.015 ng/mL 0.000-0.045 N Negative: <= 0.045 Positive: >= 0.046 Correlation with serial results, other cardiac markers andclinical findings is necessary to determine the clinicalsignificance of this result. Results using different methodologies should not be comparedto one another as quantitative results may vary by method. BASIC METABOLIC [id number] 12:50:00* Test Item Value Reference Range Interpretation Comments SODIUM (test code = NA) mEq/L 134-147 POTASSIUM (test code = K) mEq/L 3.4-5.0 CHLORIDE (test code = CL) mEq/L 100-108 CARBON DIOXIDE (test code = CO2) mEq/L 21-33 ANION GAP (test code = GAP) 0-20 GLUCOSE (test code = GLU) mg/dL 70-110 BLOOD UREA NITROGEN (test code = BUN) mg/dL 7-18 GLOMERULAR FILTRATION RATE (test code = GFR) 70-80 CREATININE (test code = CREAT) mg/dL 0.6-1.3 CALCIUM (test code = CA) mg/dL 8.0-10.5 HEPATIC FUNCTION [id number] 12:50:00* Test Item Value Reference Range Interpretation Comments TOTAL PROTEIN (test code = PROT) g/dL 6.4-8.2 ALBUMIN (test code = ALB) g/dL 3.4-5.0 BILIRUBIN TOTAL (test code = BILT) MG/DL <1.5 BILIRUBIN DIRECT (test code = BILD) MG/DL 0.0-0.30 SGOT/AST (test code = AST) IUnit/L 15-37 SGPT/ALT (test code = ALT) IUnit/L 15-65 ALKALINE PHOSPHATASE TOTAL (test code = ALKP) IUnit/L 20-125 [id number] 12:50:00* Test Item Value Reference Range Interpretation Comments MAGNESIUM (test code = MAG) mg/dL 1.8-2.4 [id number] 12:50:00* Test Item Value Reference Range Interpretation Comments TROPONIN-I (test code = TROPI) < 0.015 ng/mL 0.000-0.045 N Negative: <= 0.045 Positive: >= 0.046 Correlation with serial results, other cardiac markers andclinical findings is necessary to determine the clinicalsignificance of this result. Results using different methodologies should not be comparedto one another as quantitative results may vary by method. - XR CHEST 1 [id number] 12:46:00 FAX: Gregorio LuzAristides BURNETTE [phone] [place]: St: REG Name: EILEEN RODRIGEZ [facility] : [birth year] Age/S: 79/M [address] [place] [address] Bl Unit #: [id number] Loc: [place] [address] Phys: Aristides Escobar DO Acct: [id number] Dis Date: Status: REG ER PHONE #: [phone] Exam Date: 12/10/2019 1239 FAX #: [phone] Reason: SOB EXAMS: CPT CODE: [id number] XR CHEST 1 V 32065 Chest view 12/10/2019 HISTORY: Shortness of breath No prior exams are available for [facility] FINDINGS: No consolidation or pleural effusion is present. Heart size is normal. Aorta is within normal limits. There is no vascu lar congestion or interstitial edema. Midline sternotomy wires are present. IMPRESSION: No acute cardiopulmonary process. SL: [id number] at 0364 Reported and signed by: Enoc Reese M.D. CC: Aristides Escobar DO Technologist: RT Jacobo(Jamil) Trnscrd Da te/Time/By: 12/10/2019 (7141) : By: [email or web address] Orig Print D/T: S: 12/09 (0999) PAGE 1 Signed Report CBC W/AUTO [id number] 12:34:00* Test Item Value Reference Range Interpretation Comments WHITE BLOOD CELL (test code = WBC) 7.58 x10 3/uL 4.5-11.0 N RED BLOOD CELL (test code = RBC) 4.52 x10 6/uL 4.00-5.60 N HEMOGLOBIN (test code = HGB) 14.1 g/dL 12.5-16.9 N HEMATOCRIT (test code = HCT) 43.9 % 37.5-50.7 N MEAN CELL VOLUME (test code = MCV) 97.1 fL 81.0-99.0 N MEAN CELL HGB (test code = MCH) 31.2 pg 27.0-33.0 N MEAN CELL HGB CONCETRATION (test code = MCHC) 32.1 g/dL 33.0-37. 0 L RED CELL DISTRIBUTION WIDTH CV (test code = RDW) 14.5 % 11.5- 14.5 N RED CELL DISTRIBUTION WIDTH SD (test code = RDW-SD) 51.9 fL 37 .0-54.0 N PLATELET COUNT (test code = PLT) 207 x10 3/uL 150-400 N MEAN PLATELET VOLUME (test code = MPV) 9.7 fL 7.0-9.0 H NEUTROPHIL % (test code = NT%) 64.3 % 56.0-77.0 N IMMATURE GRANULOCYTE % (test code = IG%) 0.9 % 0.0-2.0 N LYMPHOCYTE % (test code = LY%) 25.6 % 14.0-32.0 N MONOCYTE % (test code = MO%) 6.5 % 4.8-9.0 N EOSINOPHIL % (test code = EO%) 2.0 % 0.3-3.7 N BASOPHIL % (test code = BA%) 0.7 % 0.0-2.0 N NUCLEATED RBC % (test code = NRBC%) 0.0 % 0-0 N NEUTROPHIL # (test code = NT#) 4.88 x10 3/uL 2.0-7.6 N IMMATURE GRANULOCYTE # (test code = IG#) 0.07 x10 3/uL 0.00-0.03 H LYMPHOCYTE # (test code = LY#) 1.94 x10 3/uL 1.0-3.8 N MONOCYTE # (test code = MO#) 0.49 x10 3/uL 0.1-0.8 N EOSINOPHIL # (test code = EO#) 0.15 x10 3/uL 0.0-0.2 N BASOPHIL # (test code = BA#) 0.05 x10 3/uL 0.0-0.2 N NUCLEATED RBC # (test code = NRBC#) 0.00 x10 3/uL 0.0-0.1 N MANUAL DIFF REQUIRED (test code = MDIFF) NO
--- OUTSIDE RECORDS SUMMARY | 2020-01-18 14:58 | XMS REPORT | Clinical Summary ---
Author Author [facility] Address Unknown Phone Unavailable Care Team Providers Care Space Operations Name Role Phone Jesse King MD PCP Allergies Not on File Medications Not on file Active Problems Not on file Social History Date Tobacco Use Types Packs/Day Years Used Never Assessed Sex Assigned at Date Recorded Not on file Industry Job Start Date Occupation Not on file Not on file Not on file Travel End Travel History Travel Start No recent travel history available. Last Filed Vital Signs Not on file Plan of Treatment Care Team Description Date Type Specialty Herminia Villalba MD [address] [place] [address] [address] [place] [address] 01/24/2020 Office Visit Gastroenterology Health Maintenance Due Date Last Done Comments SHINGLES VACCINES (#1) 1989 65+ PNEUMOCOCCAL VACCINE 2004 (1 of 2 - PCV13) INFLUENZA VACCINE 02/15/2020 Results Not on fileafter 01/17/2019 Insurance Type Payer Benefit Subscriber ID Effective Phone Address Plan / Dates Group Medicare MEDICARE MEDICARE xxxxxxxxxxx 2004- [place], PART A AND Present [place] B PPO BCBS BCBS xxxxxxxxxxxx [id number] CHOICE resent PPO/FEDERA L EMPL PPO Advance Directives For more information, please contact: [phone] 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
[2020-01-18] MEDS ORDERED: SODIUM CHLORIDE 0.9% 1000ML 1,000 ML ONE (15:11)
--- NOTE | 2020-01-18 15:25 | Emergency Department Note ---
History of Present Illnes History of Present Illness Chief Complaint: diarrhea and decrease appettite History of Present Illness This is a 79 year old male. during a routine cardiac cath on 12/26 pt [address] and was due to have another stent place today at [facility] today but didn't go because 2 weeks of diarrhea and decreased appettite Historian: Patient Arrival Mode: Car History limited by: condition of the patient (alejandra) Director Of Capital Giving Required: No Onset (how long ago): week(s) (2) Location: see above Quality: see above Radiation: Reports non-radiation Severity: moderate Onset quality: gradual Duration (how long): week(s) (2) Timing of current episode: constant Progression: worsening Chronicity: new Context: Reports recent illness; Denies recent surgery, Denies recent immobilization, Denies recent travel, Denies trauma/injury, Denies new medications, Denies hx of DVT/PE, Denies non- compliance w/ medications Relieving factors: none Associated symptoms: Reports denies other symptoms Treatments prior to arrival: none Past Medical/Family History Physician Review I have reviewed the patient's past medical and family history. Any updates have been documented here. Past Medical History Recent Fever: No Clinical Suspicion of Infectio: No New/Unexplained Change in Ment: No Past Medical History: Hypertension, Hyperlipedemia Other Medical History: GASTRITIS Past Surgical History: Cholecysctectomy, CABG Other Surgery: CARDIAC STENTS PLACED 12/27/2019 DOUBLE BYPASS Social History Smoking Cessation: Never Smoker Counseling Performed: No Alcohol Use: None Any Illegal Drug Use: No Other Any Pre-Existing Lines (PICC,: No Review of Systems Review of Systems Constitutional: Reports no symptoms EENTM: Reports no symptoms Cardiovascular: Reports no symptoms Respiratory: Reports no symptoms Gastrointestinal: Reports as per HPI Genitourinary: Reports no symptoms Musculoskeletal: Reports no symptoms Integumentary: Reports no symptoms Neurological: Reports no symptoms Psychological: Reports no symptoms Endocrine: Reports no symptoms Hematological/Lymphatic: Reports no symptoms Review of other systems: All other systems negative Physical Exam Related Data Triage Vital Signs Vital Signs Date Time Temp Pulse Resp B/P (MAP) Pulse Ox O2 Delivery O2 Flow Rate FiO2 01/18/20 13:43 98.4 55 16 154/69 100 Room Air Vital signs reviewed: Yes Physical Exam CONSTITUTIONAL Constitutional: Present well-developed, Present well-nourished HENT HENT: Present normocephalic, Present atraumatic, Present mucosae dry, Present nose normal HENT L/R: Present left ext ear normal, Present right ext ear normal EYES Eyes: Reports PERRL, Reports conjunctivae normal NECK Neck: Present ROM normal PULMONARY Pulmonary: Present effort normal, Present breath sounds normal CARDIOVASCULAR Cardiovascular: Present regular rhythm, Present heart sounds normal, Present capillary refill normal, Present normal rate GASTROINTESTINAL Abdominal: Present soft, Present nontender, Present bowel sounds normal GENITOURINARY Genitourinary: Present exam deferred SKIN Skin: Present warm, Present dry MUSCULOSKELETAL Musculoskeletal: Present ROM normal NEUROLOGICAL Neurological: Present alert, Present oriented x 3, Present no gross motor or sensory deficits PSYCHOLOGICAL Psychological: Present mood/affect normal, Present judgement normal Results Laboratory Lab results reviewed: Yes Laboratory comments cbc normal, bmp normal, lft normal, cardiac enzymes normal, bnp 900's, ua= nl Imaging Imaging results reviewed: Yes Impressions [place] [address] Patient Name: EILEEN WOOD MR #: [id number] : 1940 Age/Sex: 79/M Req #: [id number] Adm Physician: Ordered by: OG MCCOY Report #: [id number] Location: [facility] Room/Bed: Procedure: [id number] HOPD/CXR 1 VEW - HOPD Exam Date: 01/18/20 Exam Time: 1437 REPORT STATUS: Signed EXAMINATION: CXR 1 VEW - HOPD INDICATION: Decreased appetite. Diarrhea. Fatigue ^fatigue COMPARISON: None FINDINGS: TUBES and LINES: Sternal wires. LUNGS: Lungs are well inflated. Mild chronic appearing change in the lungs. No focal lung consolidation. PLEURA: No pleural effusion or pneumothorax. HEART AND MEDIASTINUM: The cardiomediastinal silhouette is unremarkable. BONES AND SOFT TISSUES: No acute osseous lesion. Soft tissues are unremarkable. UPPER ABDOMEN: No free air under the diaphragm. IMPRESSION: Mild chronic appearing change in the lungs. No focal lung consolidation. Signed by: Dr. Sidney Calabrese M.D. on 01/18/2020 2:39 PM Dictated By: SIDNEY CALABRESE MD, MD 143 Transcribed By: RAMIRO on 01/18/20 1439 COPY TO: OG MCCOY~ Procedures 12 Lead ECG Interpretation ECG Interpretation : ECG: ECG 1 Director Of Capital Giving: Interpreted by ED physician Date: Jan 18, 2020 Time: 14:43 Rhythm: sinus rhythm (sr with frequent pvcs) Ectopy: PVC's Rate: normal BPM: 66 ST segments normal: Yes Clinical Impression: abnormal ECG Additional Comments q waves inferior leads, t wave abnormality anterior lateral leads Assessment & Plan Medical Decision Making MDM see above Reassessment Reassessment symptoms resolved s/o ivfs Assessment & Plan Final Impression: (1) Dehydration (2) Diarrhea (3) Decrease in appetite Depart Disposition: HOME, SELF-CARE Last Vital Signs Date Time Temp Pulse Resp B/P (MAP) Pulse Ox O2 Delivery O2 Flow Rate FiO2 01/18/20 13:43 98.4 55 16 154/69 100 Room Air Home Meds Active Scripts Loperamide HCl (Imodium A-D) 2 Mg Capsule, 4 MG PO Q6H PRN for DIARRHEA, #24 TAB take 2 2mg pills Prov:OG MCCOY 01/18/20 Medications in the ED Sodium Chloride 10 ml PRN PRN INJ IV SITE FLUSH; Start 01/18/20 at 14:15; Stop 02/17/20 at 14:14 Sodium Chloride 500 ml @ 500 mls/hr Q1H STAT IV ; Start 01/18/20 at 14:13; Stop 01/18/20 at 15:12 OG MCCOY Jan 18, 2020 15:25
[2020-01-18] MEDS ORDERED: IMODIUM A-D2 M2 PO (16:09)
== END 2020-01-18 16:21 | disposition home or self-care (01) ==
LOC: FSED 14:10
DX: E86.0 Dehydration (principal); R19.7 Diarrhea, unspecified; R63.0 Anorexia; I10 Essential (primary) hypertension; E78.5 Hyperlipidemia, unspecified; Z95.1 Presence of aortocoronary bypass graft; Z95.5 Presence of coronary angioplasty implant and graft
CPT/HCPCS: 71045; 80048; 80076; 81003; 82553; 83880; 84484; 85025; 93005; 99284; J7030; J7040

== ENCOUNTER 2021-09-24 10:14 | Observation (INO) | payer MEDICARE, BC ==
[~2021-09-24] VITALS: Ht 188 cm; Wt 81.6 kg
[~2021-09-24 10:14] MED LIST: IMODIUM A-D2 M2 PO
[2021-09-24] MEDS ORDERED: FAMOTIDINE 20 MG/2 ML VIAL IV ONE ×2 (10:32→10:45)
[2021-09-24] MEDS ORDERED: KETOROLAC TROMETHAMINE 30 MG/ML VIAL IV STA (10:32)
[2021-09-24] MEDS ORDERED: SODIUM CHLORIDE 0.9% 1000ML 1,000 ML ONE (10:32)
[2021-09-24] MEDS ORDERED: ONDANSETRON HCL INJ 2MG/ML 2ML 2 MG/ML VIAL ONE (10:32)
[2021-09-24] MEDS ORDERED: SODIUM CHLORIDE 0.9% 1000ML 1,000 ML IV STA (10:32)
[2021-09-24] MEDS ORDERED: ONDANSETRON HCL INJ 2MG/ML 2ML 2 MG/ML VIAL IV STA (10:32)
[2021-09-24] MEDS ORDERED: KETOROLAC TROMETHAMINE 30 MG/ML VIAL ONE (10:32)
[2021-09-24] MEDS ORDERED: DIPHENHYDRAMINE HCL INJ 50 MG/ML VIAL IV PRN (11:15)
[2021-09-24] MEDS ORDERED: POTASSIUM CHLORIDE 10MEQ EA PO ONE (11:15)
[2021-09-24] MEDS ORDERED: ONDANSETRON HCL INJ 2MG/ML 2ML 2 MG/ML VIAL IV PRN (11:15)
[2021-09-24] MEDS ORDERED: ACETAMINOPHEN 325 MG TAB PO PRN ×2 (11:15→18:15)
[2021-09-24] MEDS ORDERED: ASPIRIN 81 MG CHEW TAB PO ONE (11:15)
[2021-09-24] MEDS ORDERED: ZOLPIDEM TARTRATE 5 MG TAB PO PRN (11:15)
[2021-09-24] MEDS ORDERED: POTASSIUM CHLORIDE 20 MEQ TAB CR PO ONE (11:41)
[2021-09-24] MEDS ORDERED: ASPIRIN 81 MG CHEW TAB ONE (11:41)
[2021-09-24] MEDS ORDERED: POTASSIUM CHLORIDE 20MEQ/100ML 100 ML IV ONE (13:00)
[2021-09-24] MEDS ORDERED: SODIUM CHLORIDE 0.9% 500ML 500 ML ONE (13:11)
[2021-09-24 13:29] VITALS: BP 157/60
[2021-09-24] MEDS: SODIUM CHLORIDE 0.9% 1000ML 1,000 ML IV SCH ×2 (15:03→19:15)
[2021-09-24 16:08] VITALS: BP 140/63
[2021-09-24 16:43] LABS: BASOPHILS % 0.7 % (0.0-1.0); EOSINOPHILS # (AUTO) 0.2 (0.0-0.4); EOSINOPHILS % 2.7 % (0.0-6.0); HEMATOCRIT 39.6 % (38.2-49.6); HEMOGLOBIN 13.4 g/dL (14.0-18.0); LYMPHOCYTES # (AUTO) 0.9 (1.0-3.2); MEAN CORPUSCULAR HEMOGLOBIN 30.9 pg (28-32); MEAN CORPUSCULAR HGB CONC 33.8 g/dL (31-35); MEAN CORPUSCULAR VOLUME 91.5 fL (81-99); MONOCYTES # (AUTO) 0.4 (0.2-0.8); MONOCYTES % 7.8 % (4.4-11.3); NEUTROPHILS # (AUTO) 3.9 (2.1-6.9); NEUTROPHILS % 71.1 % (38.7-80.0); PLATELET COUNT 179 x10e3/uL (140-360); RED BLOOD COUNT 4.33 x10e6/uL (4.3-5.7); RED CELL DISTRIBUTION WIDTH 14.4 % (11.7-14.4)
[2021-09-24] MEDS: FAMOTIDINE 20 MG/2 ML VIAL IV SCH (17:00)
[2021-09-24 17:11] LABS: ALBUMIN 3.6 g/dL (3.5-5.0); ALBUMIN/GLOBULIN RATIO 1.1 (0.8-2.0); ANION GAP 14.6 mmol/L (8-16); CALCIUM 8.2 mg/dL (8.4-10.2); CREATININE, SERUM 1.26 mg/dL (0.72-1.25); POTASSIUM 3.6 mmol/L (3.5-5.1)
[2021-09-24 17:30] LABS: CREATINE KINASE MB 2.3 ng/mL (0-5.0)
[2021-09-24] MEDS ORDERED: CLOPIDOGREL75 MG PO (18:11)
[2021-09-24] MEDS ORDERED: TEMAZEPAM30 MG PO (18:11)
[2021-09-24] MEDS ORDERED: BYSTOLIC5 MG PO (18:11)
[2021-09-24] MEDS ORDERED: PANTOPRAZOLE SO40 MG PO (18:11)
[2021-09-24] MEDS ORDERED: LISINOPRIL2.5 MG PO (18:11)
[2021-09-24] MEDS ORDERED: FUROSEMIDE40 MG PO (18:11)
[2021-09-24] MEDS ORDERED: LOPID600 MG PO (18:11)
[2021-09-24 20:00] VITALS: BP_SYST 124; BP_SYST 129; BP_DIAS 65; BP_DIAS 67
[2021-09-24 21:00] VITALS: BP 129/65
[2021-09-24] MEDS ORDERED: TEMAZEPAM 15 MG CAP PO SCH (22:15)
[2021-09-24] MEDS ORDERED: LOPERAMIDE HCL 2 MG CAP PO PRN (22:15)
[2021-09-25] VITALS: BP 137/65
[2021-09-25] MEDS: SODIUM CHLORIDE 0.9% 1000ML 1,000 ML IV SCH (00:24)
[2021-09-25 04:00] VITALS: BP 137/69
[2021-09-25 06:27] LABS: BASOPHILS % 0.7 % (0.0-1.0); EOSINOPHILS # (AUTO) 0.2 (0.0-0.4); EOSINOPHILS % 4.3 % (0.0-6.0); HEMATOCRIT 38.8 % (38.2-49.6); LYMPHOCYTES # (AUTO) 1.6 (1.0-3.2); LYMPHOCYTES % 28.6 % (18.0-39.1); MEAN CORPUSCULAR HGB CONC 33.5 g/dL (31-35); MEAN CORPUSCULAR VOLUME 92.4 fL (81-99); MONOCYTES # (AUTO) 0.4 (0.2-0.8); MONOCYTES % 7.6 % (4.4-11.3); NEUTROPHILS # (AUTO) 3.2 (2.1-6.9); NEUTROPHILS % 58.3 % (38.7-80.0); PLATELET COUNT 166 x10e3/uL (140-360); RED CELL DISTRIBUTION WIDTH 14.2 % (11.7-14.4)
[2021-09-25 06:40] LABS: ALBUMIN 3.5 g/dL (3.5-5.0); ALBUMIN/GLOBULIN RATIO 1.3 (0.8-2.0); ANION GAP 10.3 mmol/L (8-16); CALCIUM 8.2 mg/dL (8.4-10.2); CREATININE, SERUM 1.06 mg/dL (0.72-1.25); POTASSIUM 3.3 mmol/L (3.5-5.1)
[2021-09-25 07:00] LABS: MAGNESIUM 1.7 MG/DL (1.3-2.1); PHOSPHORUS 1.8 MG/DL (2.3-4.7)
[2021-09-25 07:25] LABS: CREATINE KINASE MB 3.7 ng/mL (0-5.0)
[2021-09-25] MEDS: GEMFIBROZIL 600 MG TAB PO SCH ×2 (07:30→09:19)
[2021-09-25 07:39] VITALS: BP 144/68
[2021-09-25 07:54] VITALS: BP 144/68
[2021-09-25] MEDS ORDERED: PANTOPRAZOLE SOD 40 MG TABEC PO SCH (09:00)
[2021-09-25] MEDS ORDERED: NEBIVOLOL HCL 2.5 MG TABLET PO SCH (09:00)
[2021-09-25] MEDS ORDERED: DICYCLOMINE HCL 10 MG CAP PO SCH (09:00)
[2021-09-25] MEDS ORDERED: CLOPIDOGREL BISULFATE 75 MG TAB PO SCH (09:00)
[2021-09-25] MEDS ORDERED: LISINOPRIL 2.5 MG TAB PO SCH (09:00)
[2021-09-25] MEDS: FAMOTIDINE 20 MG/2 ML VIAL IV SCH (09:23)
[2021-09-25] MEDS ORDERED: MAGNESIUM OXIDE 400 MG TAB PO ONE (10:00)
[2021-09-25] MEDS ORDERED: KCL 20 MEQ PACKET/ ORAL SOLN PO ONE (10:00)
[2021-09-25] MEDS ORDERED: MAGNESIUM SULFATE 2GM/50ML 50 ML IV ONE (11:30)
[2021-09-25 11:58] VITALS: BP 154/65
[2021-09-25] MEDS ORDERED: ONDANSETRON HCL 4 MG ORAL DISINTEGRATING TAB PO PRN (13:00)
[2021-09-25 15:51] VITALS: BP 136/60
[2021-09-25] MEDS ORDERED: METOPROLOL SUCCINATE 25 MG TAB XL PO ONE (16:15)
[2021-09-25] MEDS ORDERED: DICYCLOMINE HCL10 MG PO (18:09)
[2021-09-26] MEDS ORDERED: METOPROLOL SUCCINATE 25 MG TAB XL PO SCH (09:00)
== END 2021-09-25 18:59 | disposition home or self-care (01) ==
LOC: FSED 10:18 → ERHOLD 11:05 → MED/SURG3 13:29
PROVIDERS: ADMIT Internal Medicine; ATTEND Internal Medicine
DX: A08.4 Viral intestinal infection, unspecified (principal); E87.6 Hypokalemia; N17.9 Acute kidney failure, unspecified; I25.10 Atherosclerotic heart disease of native coronary artery without angina pectoris; I49.3 Ventricular premature depolarization; I10 Essential (primary) hypertension; E78.5 Hyperlipidemia, unspecified; K21.9 Gastro-esophageal reflux disease without esophagitis; R00.1 Bradycardia, unspecified; Z80.0 Family history of malignant neoplasm of digestive organs; Z20.822 Contact with and (suspected) exposure to COVID-19; Z90.49 Acquired absence of other specified parts of digestive tract; Z95.5 Presence of coronary angioplasty implant and graft; Z95.1 Presence of aortocoronary bypass graft; E86.0 Dehydration
CPT/HCPCS: 36415 ×2; 74022; 80053 ×2; 80076; 82550 ×2; 82553 ×2; 83630; 83735 ×2; 84100; 84484 ×2; 85025 ×2; 87045; 87177; 87493; 93005; 93306; 99284; C9113; G0378 ×2; J1885; J2405; J3475; J3480; J7030 ×2; J7040; U0002